=== PATIENT | male | born 1975 | race Caucasian/White ===

== ENCOUNTER 2016-07-30 23:37 | Emergency (ER) | payer OTHER ==
[~2016-07-30] VITALS: Ht 167.6 cm; Wt 52.9 kg
[2016-07-31] MEDS ORDERED: SKELAXIN800 MG PO (00:15)
[2016-07-31] MEDS ORDERED: NAPROXEN500 MG PO (00:15)
[2016-07-31 00:30] VITALS: BP 130/99
== END 2016-07-31 00:30 | disposition home or self-care (01) ==
LOC: EME 23:37 → EXP 23:37
DX: S30.0XXA Contusion of lower back and pelvis, initial encounter (principal); W22.8XXA Striking against or struck by other objects, initial encounter; Y99.0 Civilian activity done for income or pay
CPT/HCPCS: 99281; 99283

== ENCOUNTER 2016-10-25 05:31 | Emergency (ER) | payer OTHER ==
[~2016-10-25] VITALS: Ht 167.6 cm; Wt 53.5 kg
[~2016-10-25 05:31] MED LIST: NAPROXEN500 MG PO; SKELAXIN800 MG PO
[2016-10-25 08:32] VITALS: BP 131/85
== END 2016-10-25 08:39 | disposition home or self-care (01) ==
LOC: EME 05:31
DX: S01.81XA Laceration without foreign body of other part of head, initial encounter (principal); Y00.XXXA Assault by blunt object, initial encounter; Y92.009 Unspecified place in unspecified non-institutional (private) residence as the place of occurrence of the external cause; Y07.02 Wife, perpetrator of maltreatment and neglect; Z23 Encounter for immunization; F17.200 Nicotine dependence, unspecified, uncomplicated
CPT/HCPCS: 99281; 99283

== ENCOUNTER 2016-12-09 23:39 | Emergency (ER) | payer OTHER ==
[~2016-12-09] VITALS: Ht 167.6 cm; Wt 51.7 kg
[2016-12-10 01:52] VITALS: BP 147/110
[2016-12-11 12:58] LABS: CHLAMYDIA TRACHOMATIS NEGATIVE; NEISSERIA GONORRHOEAE NEGATIVE
== END 2016-12-10 01:55 | disposition home or self-care (01) ==
LOC: EME 23:39
PROVIDERS: Physician Assistant
DX: N34.2 Other urethritis (principal); R03.0 Elevated blood-pressure reading, without diagnosis of hypertension; F17.200 Nicotine dependence, unspecified, uncomplicated
CPT/HCPCS: 87491; 87591; 99281; 99284; J0696